=== PATIENT | male | born 1970 | race Caucasian/White ===

== ENCOUNTER 2021-01-24 09:13 | Outpatient (CLI) | payer OTHER, SELFPAY ==
--- NOTE | ~2021-01-24 | CT_ITS ---
EXAMINATION: CT abdomen pelvis w con DATE: 01/24/2021 09:47 INDICATION: Right lower quadrant pain TECHNIQUE: Computed tomography (CT) of the abdomen and pelvis was performed with 100 cc Omnipaque 350 intravenous contrast. The dose-length product was 629.66 mGy-cm. Automated exposure control and iter ative reconstruction technique were employed. COMPARISON: None. FINDINGS: Lung bases are unremarkable. No significant pleural or pericardial effusion. Heart size is normal. No significant vascular abnormality. No lymphadenopathy. Fatty infiltration of the liver. The spleen, pancreas, adrenal glands and left kidney are unremarkable. There is a small subcentimeter hy podensity of the right kidney at the lower pole, most likely benign. Gallbladder is present. No acute osseous abnormality. Mild osteoarthritis of the hips. Normal appendix. Nonobstructive bowel gas dimple akua. No free air or free fluid. IMPRESSION: 1. No acute abdominal abnormality. Reviewed, dictated and finalized at location B.
--- NOTE | ~2021-01-24 | NM_ITS ---
NM stress w perf spect multi Procedure: The patient was stressed using Modified Romeo protocol. Prior to the end of exercise 33.3 mCi Tc 99m IV administered. Rest imaging performed following administration of 11.2 mCi Tc 99m IV. Images were reformatted into short axis, horizontal and vertical long axis sections for visual and q uantitative analysis. Indication: Chest pain Comparison: None Findings: Computer assisted qualitative and quantitative analysis of the immediate and delayed images revealed normal left ventricular perfusion without evidence of fixed or reversible perfusion abnorma lity to suggest ischemia or infarction. Normal left ventricular cavity size, wall motion and ejectio n fraction. Left ventricular ejection fraction measures 67%. Impression: 1: No scintigraphic evidence of resting or stress induced perfusion abnormality. 2: Normal left ventricle ejection fraction measuring 67%. Reviewed, dictated and finalized at location B. Impression: 1: No scintigraphic evidence of resting or stress induced perfusion abnormality . 2: Normal left ventricle ejection fraction measuring 67%.
--- NOTE | 2021-01-24 09:21 | EST_ITS ---
Patient Info Name: Akbar Bourgeois Age: 50 years : 1970 Gender: Male Ht: 68 in Wt: 205 lbs BSA: 2.14 m2 Exam Date: 01/24/2021 10:18 AM Exam Location: [facility] Stress Patient Status: Outpatient Admit Date: 01/24/2021 Staff Ordering Physician: Narendra Bird PA-C Attending Provider: Narendra Bird PA-C Exercise Technologist: Elidia Anthony RDCS Exercise Physician: Keven Malloy DO Exam Type: CA stress test treadmill w NM Study Info Indications R07.9 - Chest pain, unspecified A nuclear stress test was performed. Summary 1. 1. Negative Romeo exercise stress test for ischemic ST changes by ECG criteria. 2. 2. Good functional capacity, achieving 12 METs of workload. 3. 3. Appropriate HR response to exercise. 4. 4. Appropriate HR recovery at 1 minute post exercise. 5. 5. Nuclear scan to follow and will be reported separately. Please correlate with it. 6. 6. Patient informed of the above results. Protocol: Romeo Stress ECG Details Stage: REST Duration (min): 0 min : 48 sec Speed (mph): 0.0 Grade (%): 0 HR (bpm): 57 SBP (mmHg): 133 DBP (mmHg): 87 METS: --- Stage: REST Duration (min): 13 min : 0 sec Speed (mph): 0.0 Grade (%): 0 HR (bpm): 72 SBP (mmHg): 133 DBP (mmHg): 87 METS: --- Stage: STAGE 1 Duration (min): 1 min : 0 sec Speed (mph): 1.7 Grade (%): 10 HR (bpm): 86 SBP (mmHg): 133 DBP (mmHg): 87 METS: --- Stage: STAGE 1 Duration (min): 2 min : 0 sec Speed (mph): 1.7 Grade (%): 10 HR (bpm): 91 SBP (mmHg): 133 DBP (mmHg): 87 METS: --- Stage: STAGE 1 Duration (min): 3 min : 0 sec Speed (mph): 1.7 Grade (%): 10 HR (bpm): 98 SBP (mmHg): 183 DBP (mmHg): 77 METS: --- Stage: STAGE 2 Duration (min): 1 min : 0 sec Speed (mph): 2.5 Grade (%): 12 HR (bpm): 102 SBP (mmHg): 183 DBP (mmHg): 77 METS: --- Stage: STAGE 2 Duration (min): 2 min : 0 sec Speed (mph): 2.5 Grade (%): 12 HR (bpm): 108 SBP (mmHg): 165 DBP (mmHg): 76 METS: --- Stage: STAGE 2 Duration (min): 3 min : 0 sec Speed (mph): 2.5 Grade (%): 12 HR (bpm): 104 SBP (mmHg): 165 DBP (mmHg): 76 METS: --- Stage: STAGE 3 Duration (min): 1 min : 0 sec Speed (mph): 3.4 Grade (%): 14 HR (bpm): 124 SBP (mmHg): 201 DBP (mmHg): 83 METS: --- Stage: STAGE 3 Duration (min): 2 min : 0 sec Speed (mph): 3.4 Grade (%): 14 HR (bpm): 132 SBP (mmHg): 201 DBP (mmHg): 83 METS: --- Stage: STAGE 3 Duration (min): 3 min : 0 sec Speed (mph): 3.4 Grade (%): 14 HR (bpm): 133 SBP (mmHg): 197 DBP (mmHg): 89 METS: --- Stage: STAGE 4 Duration (min): 1 min : 0 sec Speed (mph): 4.2 Grade (%): 16 HR (bpm): 151 SBP (mmHg): 197 DBP (mmHg): 89 METS: --- Stage: STAGE 4 Du
== END 2021-01-24 09:14 | disposition home or self-care (01) ==
PROVIDERS: PCP Physician Assistant; Visit Provider Physician Assistant
DX: R10.31 Right lower quadrant pain (principal); R07.9 Chest pain, unspecified
CPT/HCPCS: 74177; 78452; 93017; A9502; Q9967

== ENCOUNTER 2021-06-29 11:24 | Outpatient (CLI) | payer OTHER, SELFPAY ==
--- NOTE | ~2021-06-29 | XR_ITS ---
XR cervical spine 4-5V 06/29/2021 11:40 Indication: Cervicalgia. Next stiffness. Procedure: 4 views of the cervical spine Comparison: No prior studies for comparison. Findings: Normal cervical lordosis. Vertebral body and disc heights are preserved. No prevertebral so ft tissue swelling. Odontoid process is normal. Lateral masses normally aligned. There is mild uncina te hypertrophy at C5-6 and C6-7. Lung apices are normal. Impression: 1: Mild cervical spondylosis. Reviewed, dictated and finalized at location A. [employer] SUPERVIS[employer] Impression: 1: Mild cervical spondylosis.
== END 2021-06-29 11:25 | disposition home or self-care (01) ==
LOC: ANHIMG 11:29
PROVIDERS: PCP Physician Assistant; Visit Provider Physician Assistant
DX: M47.892 Other spondylosis, cervical region (principal)
CPT/HCPCS: 72050